=== PATIENT | male | born 1970 | race Caucasian/White ===

== ENCOUNTER 2020-06-15 09:26 | Outpatient (CLI) | payer OTHER, SELFPAY ==
--- NOTE | 2020-06-15 10:02 | EST_ITS ---
Patient Info Name: Alfredito Varghese Age: 49 years : 1970 Gender: Male Ht: 71 in Wt: 210 lbs BSA: 2.21 m2 Exam Date: 06/15/2020 10:14 AM Exam Location: [facility] Stress Patient Status: Outpatient Admit Date: 06/15/2020 Staff Ordering Physician: Joaquin Abebe DO Attending Provider: Joaquin Abebe DO Exercise Technologist: Sally Lawrence CT Exam Type: CA stress test treadmill Study Info A treadmill exercise stress test was performed. Summary 1. 1. Negative Portillo exercise stress test for ischemic ST changes by ECG criteria. 2. 2. Good functional capacity, achieving 12 METs of workload. 3. 3. Appropriate HR response to exercise. 4. 4. Appropriate HR recovery at 1 minute post exercise. 5. 5. No imaging with stress testing. 6. 6. Patient informed of the above results. Protocol: Portillo Stress ECG Details Stage: REST Duration (min): 0 min : 59 sec Speed (mph): 0.0 Grade (%): 0 HR (bpm): 72 SBP (mmHg): 111 DBP (mmHg): 75 METS: --- Stage: REST Duration (min): 15 min : 7 sec Speed (mph): 0.0 Grade (%): 0 HR (bpm): 79 SBP (mmHg): 111 DBP (mmHg): 75 METS: --- Stage: STAGE 1 Duration (min): 1 min : 0 sec Speed (mph): 1.7 Grade (%): 10 HR (bpm): 83 SBP (mmHg): 111 DBP (mmHg): 75 METS: --- Stage: STAGE 1 Duration (min): 2 min : 0 sec Speed (mph): 1.7 Grade (%): 10 HR (bpm): 90 SBP (mmHg): 111 DBP (mmHg): 75 METS: --- Stage: STAGE 1 Duration (min): 3 min : 0 sec Speed (mph): 1.7 Grade (%): 10 HR (bpm): 94 SBP (mmHg): 130 DBP (mmHg): 67 METS: --- Stage: STAGE 2 Duration (min): 1 min : 0 sec Speed (mph): 2.5 Grade (%): 12 HR (bpm): 98 SBP (mmHg): 130 DBP (mmHg): 67 METS: --- Stage: STAGE 2 Duration (min): 2 min : 0 sec Speed (mph): 2.5 Grade (%): 12 HR (bpm): 104 SBP (mmHg): 148 DBP (mmHg): 66 METS: --- Stage: STAGE 2 Duration (min): 3 min : 0 sec Speed (mph): 2.5 Grade (%): 12 HR (bpm): 101 SBP (mmHg): 148 DBP (mmHg): 66 METS: --- Stage: STAGE 3 Duration (min): 1 min : 0 sec Speed (mph): 3.4 Grade (%): 14 HR (bpm): 113 SBP (mmHg): 150 DBP (mmHg): 64 METS: --- Stage: STAGE 3 Duration (min): 2 min : 0 sec Speed (mph): 3.4 Grade (%): 14 HR (bpm): 117 SBP (mmHg): 150 DBP (mmHg): 64 METS: --- Stage: STAGE 3 Duration (min): 3 min : 0 sec Speed (mph): 3.4 Grade (%): 14 HR (bpm): 122 SBP (mmHg): 171 DBP (mmHg): 69 METS: --- Stage: STAGE 4 Duration (min): 1 min : 0 sec Speed (mph): 4.2 Grade (%): 16 HR (bpm): 140 SBP (mmHg): 171 DBP (mmHg): 69 METS: --- Stage: STAGE 4 Duration (min): 2 min : 0 sec Speed (mph): 4.2 Grade (%): 16 HR (bpm): 157 SBP (mmHg): 208 DBP (mmHg): 94
== END 2020-06-15 09:27 | disposition home or self-care (01) ==
PROVIDERS: PCP Internal Medicine; Visit Provider Internal Medicine
DX: R07.9 Chest pain, unspecified (principal)
CPT/HCPCS: 93017

== ENCOUNTER 2022-11-08 09:15 | Outpatient (CLI) | payer BC, SELFPAY ==
--- NOTE | 2022-11-14 13:41 | WPDHOMESLEEP ---
Sleep Study - Home Unattended Date of Study: 11/08/22 Ordering Provider: Joaquin Abebe DO Interpreting Provider: Alyssa Schaeffer MD Home Sleep Study Type: Watch PAT Height: 1.8 m Weight: 95.254 kg Body Mass Index: 29.2 Neck Circumference (inches): 16.5 Powderly: 3 Reason for Sleep Study Loud snoring, excessive daytime sleepiness Sleep History Alfredito Varghese is a 52-year-old [employer] with complaints of loud snoring and frequent breathing problems at night. He does not awaken from sleep feeling short of breath. He rarely awakens at night with heartburn, belching or coughing. He frequently snores and is always loud enough that it bothers others. He frequently has difficulty sleeping if he has a cold. He rarely sweats excessively at night. He does not notice his heart pounding or beating irregularly night. He occasionally falls asleep during the day. He never falls asleep involuntarily. He occasionally has fallen asleep while driving. He does not have loss of muscle tone with strong emotion. He rarely has daytime difficulties due to excessive sleepiness. He does not feel paralyzed on waking or falling asleep. He occasionally has vivid dreamlike scenes on waking or falling asleep. He does not feel afraid to go to sleep. He rarely has nightmares. He occasionally remembers his dreams. He occasionally has racing thoughts. He does not feel sad or depressed. He rarely has anxiety. He rarely has muscular tension. He rarely notices parts of his body jerking. He occasionally kicks at night. He does not have crawling or aching feelings in his legs. He rarely has leg pain at night. He rarely has morning jaw pain. He frequently grinds his teeth during sleep. He rarely is bothered by pain during the day. He occasionally is awakened by pain at night. He occasionally wakes up feeling stiff in the morning. He rarely wakes up with sore or achy muscles. He occasionally wakes up with pain in the neck and spine. Normal bedtime is between 9:30 p.m. and 10:00 p.m.. He falls asleep within 15-20 minutes. He typically wakes between 2 and 3 times at night, returns to sleep within 5 minutes. On his days off, he awakens between 6:00 a.m. and 7:00 a.m.. On work days, he wakes between 4:00 a.m. and 4:15 a.m.. Weekend schedule is similar. He estimates getting between 6 and 6.5 hours of sleep at night. He does not take naps. Habits: Quit tobacco 25 years ago. Caffeine 4 cups of coffee per day. Alcohol 2 servings per day. Recreational substances: None. [facility] Past Medical History Medical History Long-term current use of testosterone cypionate Male hypogonadism Other hyperlipidemia Surgical History Surgical History History of medial meniscus repair of left knee Family History Family History Father Hypertension Social History Social History Smoking status: Former smoker Smoking end date: 02/11/98 Alcohol intake: current Lack of Transportation: No Lack of Food: Never True Current Housing: I Have Housing Concerned About Future Housing: No Difficulty Paying Gas/Electric Bills: No Difficulty Paying for Meds: No Currently Unemployed: No Education: Associate Degree Difficulty w/ Childcare or Family Care: No Medications Home Medications Medication Instructions Recorded Confirmed Type needle (disp) 18 G 18 gauge x 1 #100 ea 07/17/22 10/02/22 Rx 1/2 (BD Regular Bevel Bethel) syringe with needle 3 mL 25 x 1 #100 ea 07/17/22 10/02/22 Rx 1/2 (BD Luer-Osmani Syringe) testosterone cypionate 200 mg/mL 150 mg (0.75 mL) IM WEEKLY #1 mL 07/24/22 10/02/22 Rx intramuscular oil tadalafil 20 mg tablet 10 - 20 mg PO Q36H PRN sexual 10/02/22 10/02/22 Rx activity #30 tabs
[2022-11-14 13:52] VITALS: BMI 29.2
== END 2022-11-13 09:12 | disposition home or self-care (01) ==
LOC: ANHCSM 09:18
PROVIDERS: PCP Internal Medicine; Visit Provider Internal Medicine
DX: G47.33 Obstructive sleep apnea (adult) (pediatric) (principal); E78.49 Other hyperlipidemia; Z87.891 Personal history of nicotine dependence
CPT/HCPCS: 95800

== ENCOUNTER 2023-09-23 08:02 | Outpatient (CLI) | payer BC, SELFPAY ==
--- NOTE | ~2023-09-23 | XR_ITS ---
XR foot LT min 3V Ordering provider: Joaquin Abebe DO History: . No injury pain across plantar surface of metatarsals . Comparison: None. FINDINGS: BONES: No acute fracture or dislocation. Early calcaneal spur. JOINT SPACES: Normal. No tarsal coalition. SOFT TISSUES: Normal. IMPRESSION: No acute osseous abnormality left foot. Reviewed, dictated and finalized at location A.
== END 2023-09-23 08:03 ==
PROVIDERS: PCP Internal Medicine; Visit Provider Internal Medicine
DX: M79.672 Pain in left foot (principal)
CPT/HCPCS: 73630

== ENCOUNTER 2024-06-15 14:10 | Outpatient (NON) | payer OTHER, SELFPAY ==
--- OUTSIDE RECORDS SUMMARY | 2024-06-15 14:48 | XMS_ITS | Clinical Summary ---
Author Organization [facility] Address [address] [place] [id number] Care Team Providers Care Machine Cloth Measurer Name Role Phone Joaquin Abbee DO Primary Care Provider [phone]- [phone] Allergies No known active allergies Medications fluticasone (FLONASE) 50 mcg/actuation nasal spray inhale 1 spray by intranasal route 2 times every day in each nostril as needed 1 spray 0 6 Active testosterone cypionate (DEPO-TESTOTERO NE) 200 mg/mL injection 4 Active Active Problems No known active problems Family History Medical History Relation Name Comments Ulcerative colitis Brother Heart attack Father Diabetes Other Family history of Diabetes mellitus; Relation Name Status Comments Brother Father Other Social History Tobacco Use Types Packs/Day Years Used Date Smoking Tobacco: Former Cigarettes Alcohol Use Standard Drinks/Week Comments Yes 0 (1 standard drink = 0.6 oz pur e alcohol) AUDIT-C Answer Date Recorded Q1: How often do you have a drink containing alc ohol? Monthly or less 07/15/2023 Q2: How many drinks containi ng alcohol do you have on a typical day when you are drinking? 1 or 2 07/15/2023 Q3: How often do you have si x or more drinks on one occasion? 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 Gender Identity Not on file Sexual Orientation Not on file Obstetrics History Last Filed Vital Signs Vital Sign Reading Time Taken Comments Blood Pressure 124/64 03/31/2015 2:19 PM SAVINGS COUNSELOR Pulse 66 03/31/2015 2:19 PM SAVINGS COUNSELOR Temperature - - Respiratory Rate - - Oxygen Saturation - - Inhaled Oxygen Concentration - - Weight 93.9 kg (207 lb) 07/15/2023 8:07 AM CDT Height 180.3 cm (5' 11 ) 07/15/2023 8:07 AM CDT Body Mass Index 28.87 07/15/2023 8:07 AM CDT Plan of Treatment Health Maintenance Due Date Last Done Comments Colon Cancer Screening-Colonoscopy 1970 Depression Screening 1970 Hepatitis C Screening 1970 Prostate Cancer Screening-PSA 1970 DTaP/Tdap/Td Vaccine (1 - Tdap) 1981 Hepatitis B Screening 1988 Regular Well Visit/Exam 18-64 1988 Zoster Vaccine (1 of 2) 2020 Covid-19 Vaccine (3 - 2023-2 5 season) 2023 04/12/2020, 03/15/2020 Influenza Vaccine (Season Ended) 2024 Pneumococcal vaccine <65 Aged Out No longer eligible based on patient's age to complete this topic Insurance [facility] FEDERAL Care Teams Machine Cloth Measurer Relationship Specialty Start Date End Date Joaquin Abebe DO PCP - General Internal Medicine 06/22/21
--- OUTSIDE RECORDS SUMMARY | 2024-06-15 14:48 | XMS_ITS | Referral Summary ---
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 Gender Identity Not on file Sexual Orientation Not on file Last Filed Vital Signs Vital Sign Reading Time Taken Comments Blood Pressure 124/64 03/31/2015 2:19 PM CRIME SCENE EVIDENCE TECHNICIAN Pulse 66 03/31/2015 2:19 PM CRIME SCENE EVIDENCE TECHNICIAN Temperature - - Respiratory Rate - - Oxygen Saturation - - Inhaled Oxygen Concentration - - Weight 93.9 kg (207 lb) 07/15/2023 8:07 AM CDT Height 180.3 cm (5' 11 ) 07/15/2023 8:07 AM CDT Body Mass Index 28.87 07/15/2023 8:07 AM CDT Plan of Treatment Not on file Insurance [facility] FEDERAL Care Teams Barrel Cooper Relationship Specialty Start Date End Date Joaquin Abebe DO PCP - General Internal Medicine 06/22/21
--- OUTSIDE RECORDS SUMMARY | 2024-06-15 14:48 | XMS_ITS | Clinical Summary ---
Author Organization [facility] Address [address] [place] [address] Care Team Providers Care Elevated Motorman Name Role Phone Joaquin Abebe DO Primary Care Provider [phone] Source Comments [facility],non-owned Affiliates and Associated Physician Practices is amultiple site organization consisting of ambulatory clinics and hospital sitesin [place], [place], [place] and [place]. This disclosure is being madepursuant to the Care Everywhere program and may not contain all information available regarding this patient. Last updated 17.[facility] Allergies No known active allergies Medications * Be aware that medications may not be up to date on this document. Alwaysverify current medications with the patient. No known medications Social History Tobacco Use Types Packs/Day Years Used Date Smoking Tobacco: Former Cigarettes Q uit: 11/12/1996 Smokeless Tobacco: Never Sex and Gender Information Value Date Recorded Sex Assigned at Not on file Legal Sex Male 5:24 PM CDT Gender Identity Not on file Sexual Orientation Not on file Last Filed Vital Signs Vital Sign Reading Time Taken Comments Blood Pressure 136/84 11/12/2016 5:32 PM CDT Pulse 74 11/12/2016 5:32 PM CDT Temperature 37.1 C (98.7 F) 11/12/2016 5:32 PM CDT Respiratory Rate 16 11/12/2016 5:32 PM CDT Oxygen Saturation 97% 11/12/2016 5:32 PM CDT Inhaled Oxygen Concentration - - Weight 95.3 kg (210 lb) 11/12/2016 5:32 PM CDT Height 182.9 cm (6') 11/12/2016 5:32 PM CDT Body Mass Index 28.48 11/12/2016 5:32 PM CDT Plan of Treatment Health Maintenance Due Date Last Done Comments COLOGUARD (AGES 45-75) - COL ON CA SCREENING 1970 COLON MONITORING 1970 COLONOSCOPY - COLON CA SCREENING 1970 CT COLONOGRAPHY - COLON CA SCREENING 1970 Colorectal Cancer Screening 1970 FIT - COLON CA SCREENING 1970 FLEX SIG - COLON CA SCREENING 1970 LIPID TESTING 1970 HIV SCREENING 1985 HEPATITIS C SCREENING 07/11/1988 DTAP/TDAP/TD VACCINES (1 - Tdap) 1989 HEPATITIS B VACCINE (1 of 3 - 19+ 3-dose series) 1989 SCREENING FOR DIABETES 11/12/2016 PNEUMOCOCCAL VACCINE 50+ (1 of 1 - PCV) 2020 ZOSTER VACCINE (1 of 2) 2020 COVID-19 VACCINE (1 - 2023-2 5 season) 2023 DEPRESSION SCREENING 02/12/2024 INFLUENZA VACCINE (Season Ended) 2024 HIB VACCINE Aged Out No longer eligi ble based on patient's age to complete this topic HPV VACCINE Aged Out No longer eligi ble based on patient's age to complete this topic MENINGOCOCCAL (Group B) VACC INE SHARED DECISION-MAKING Aged Out No longer eligibl e based on patient's age to complete this topic MENINGOCOCCAL GROUPS A/C/Y/W VACCINE Aged Out No longer eligible b ased on patient's age to complete this topic [place] [address] [place] [address] Care Teams Elevated Motorman Relationship Specialty Start Date End Date Joaquin Abebe DO PCP - General Internal Medicine 11/12/16
--- OUTSIDE RECORDS SUMMARY | 2024-06-15 14:48 | XMS_ITS | Clinical Summary ---
Author Organization [facility] [id number] [place] [address] Address [address] [place] [address] Care Team Providers Care Camouflage Specialist Name Role Phone Amanuel Jones Primary Care Provider Unavailabl e Allergies No known active allergies Medications testosterone cypionate (DEPO-TESTOSTERONE ) 200 mg/mL Oil 11/25/2023 Act madhu Encounters Date Type Department Care Team Description 04/29/2024 External Device Data [facility] ABSTRACTION Provider, Abstract 04/21/2024 External Device Data [facility] ABSTRACTION Provider, Abstract 04/21/2024 External Device Data [facility] ABSTRACTION Provider, Abstract 04/18/2024 External Device Data [facility] ABSTRACTION Provider, Abstract 04/17/2024 External Device Data ST[facility] ABSTRACTION Provider, Abstract 04/07/2024 External Device Data ST[facility] ABSTRACTION Provider, Abstract 03/24/2024 External Device Data STL ABSTRACTION Provider, Abstract from Last 3 Months Social History Tobacco Use Types Packs/Day Years Used Date Smoking Tobacco: Former Cigarettes Q uit: 1989 Smokeless Tobacco: Former Chew Tobacco Cessation:Counseling Given: Not Answered Alcohol Use Standard Drinks/Week Comments Yes 6 (1 standard drink = 0.6 oz pur e alcohol) Feeling Safe Answer Date Recorded Are you in a relationship wi th someone who hurts you emotionally and/or physically? No 12/27/2023 Sex and Gender Information Value Date Recorded Sex Assigned at Not on file Legal Sex Male 4:11 AM HAND CANDLE DIPPER Gender Identity Not on file Sexual Orientation Not on file Last Filed Vital Signs Vital Sign Reading Time Taken Comments Blood Pressure 118/93 12/27/2023 2:15 PM HAND CANDLE DIPPER Pulse 61 12/27/2023 2:15 PM HAND CANDLE DIPPER Temperature 36.4 C (97.5 F) 12/27/2023 1:55 PM HAND CANDLE DIPPER Respiratory Rate 20 12/27/2023 2:15 PM HAND CANDLE DIPPER Oxygen Saturation 100% 12/27/2023 2:15 PM HAND CANDLE DIPPER Inhaled Oxygen Concentration - - Weight 95.3 kg (210 lb) 12/27/2023 12:50 PM HAND CANDLE DIPPER Height 160 cm (5' 3 ) 12/27/2023 12:50 PM HAND CANDLE DIPPER Body Mass Index 37.2 12/27/2023 12:50 PM HAND CANDLE DIPPER Plan of Treatment Health Maintenance Due Date Last Done Comments Pre-Diabetes and Diabetes Screening 1970 DTAP/TDAP/TD VACCINES (1 - Tdap) 1989 HEPATITIS B VACCINES (1 of 3 - 19+ 3-dose series) 1989 FIT-DNA Q 3 years 07/17/2015 FIT/FOBT Q 1 year 07/17/2015 Flex Sig/CT Colonography Q 5 years 07/17/2015 ZOSTER VACCINE (1 of 2) 2020 INFLUENZA VACCINE (#1) 2023 COLORECTAL SCREENING 12/26/2033 12/27/2023, 12/27/19 24 Colorectal Cancer Screening 12/26/2033 Procedures Procedure Name Priority Date/Time Associated Diagnosis Comments COLONOSCOPY REPORT 12/27/2023 1: 56 PM HAND CANDLE DIPPER from Last 3 Months or Most Recently Relevant to Health Maintenance Results * COLONOSCOPY REPORT (12/27/2023 1:56 PM HAND CANDLE DIPPER) Narrative Procedure Note Tiana Gonzalez MD - 12/27/2023 1:56 PM CST [facility] Endoscopy Patient Name: Alfredito Varghese Procedure Date: 12/27/2023 Date of : 1970 Attending MD: Tiana Gonzalez MD, Procedure: Colonoscopy Indications: Screening for colorectal malignant neoplasm Patient Profile: Refer to note in patient chart for documentation of history and physical. Providers: Tiana Gonzalez MD Referring MD: Joaquin Abebe Medicines: Monitored Anesthesia Care Complications: No immediate complications. Procedure: Pre-Anesthesia Assessment: - Prior to the procedure, a History and Physical was performed, and patient medications, allergies and sensitivities were reviewed. The patient's tolerance of previous anesthesia was reviewed. - The risks and benefits of the procedure and the sedation options and risks were discussed with the patient. All questions were answered and informed consent was obtained. - ASA and MP per anesthesia records. See the other procedure note for documentation of the pre-procedure assessment Informed consent was obtained for the procedure, including moderate sedation after risks were discussed. Based on the pre-procedure assessment, including review of the patient's medical history, medications, allergies, and review of systems, the patient was deemed to be an appropriate candidate for sedation. A timeout was performed. Continuous ECG monitoring, pulse oximetry, blood pressure monitoring, and direct observation were performed. The Colonoscope was introduced through the anus and advanced to the cecum, identified by appendiceal orifice and ileocecal valve. The colonoscopy was performed without difficulty. The patient tolerated the procedure well. The quality of the bowel preparation was evaluated using the BBPS (Clemons Bowel Preparation Scale) with scores of: Right Colon = 3, Transverse Colon = 3 and Left Colon = 3 (entire mucosa seen well with no residual staining, small fragments of stool or opaque liquid). The total BBPS score equals 9. Findings: The perianal and digital rectal examinations were normal. Many small-mouthed diverticula were found in the sigmoid colon. There was no evidence of diverticular bleeding. Non-bleeding external and internal hemorrhoids were found during retroflexion. The hemorrhoids were small. Impression: - Diverticulosis in the sigmoid colon. There was no evidence of diverticular bleeding. - Non-bleeding external and internal hemorrhoids. - No specimens collected. Recommendation: - Repeat colonoscopy in 10 years for screening purposes. - High fiber diet. - Return to primary care physician as previously scheduled. - The findings and recommendations were discussed with the patient. - Discharge patient to home (with escort). Procedure Code(s): --- Professional --- 15542, Colonoscopy, flexible; diagnostic, including collection of specimen(s) by brushing or washing, when performed (separate procedure) CPT copyright 2020 [employer]. All rights reserved. The codes documented in this report are preliminary and upon computer language coder review may be revised to meet current compliance requirements. Attending Participation: I personally performed the entire procedure. Tiana Gonzalez MD 12/27/2023 1:56:04 PM This report has been signed electronically. Number of Addenda: [id number] [address], [place] [address] Tiana Gonzalez MD GI PROCEDURE ORDERABLES Final Result from Last 3 Months or Most Recently Relevant to Health Maintenance Insurance [facility] FEDERAL Care Teams Camouflage Specialist Relationship Specialty Start Date End Date Amanuel Jones PCP - General 01/16/02
--- OUTSIDE RECORDS SUMMARY | 2024-06-15 14:48 | XMS_ITS | Encounter Summary ---
Author Organization [facility] Address 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
--- OUTSIDE RECORDS SUMMARY | 2024-06-15 14:48 | XMS_ITS | Encounter Summary ---
Author Organization [facility] Address 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
[2024-06-15 20:01] LABS: Add Urine Microscopic? NO; Appearance Urine Clear (Clear); Bilirubin Urine Negative (Negative); Blood Urine Negative (Negative); Color Urine Yellow (Yellow); Glucose Urine UA Negative (Negative); Ketones Urine Negative (Negative); Leukocyte Esterase Ur Negative LEU/UL (Negative); Nitrate Urine Negative (Negative); Protein Urine Negative (Negative); Specific Grav Ur 1.013 (1.001-1.035); Urobilinogen Urine 0.2 mg/dL (<2.0); pH Urine 6.5 (5.0-9.0)
== END 2024-06-15 14:11 | disposition home or self-care (01) ==
PROVIDERS: PCP Internal Medicine; Visit Provider Internal Medicine
DX: R10.9 Unspecified abdominal pain (principal); R30.0 Dysuria
CPT/HCPCS: 81003

== ENCOUNTER 2024-06-15 14:25 | Outpatient (CLI) | payer OTHER, SELFPAY ==
--- NOTE | ~2024-06-15 | CT_ITS ---
EXAMINATION: CT abdomen pelvis w con DATE: 06/15/2024 14:54 INDICATION: Pelvic and perineal pain TECHNIQUE: Computed tomography (CT) of the abdomen and pelvis was performed with 100 mL Omnipaque-350 intravenous contrast. Automated exposure control and iterative reconstruction technique were employe d. The dose-length product was 712.18 mGy-cm. COMPARISON: None FINDINGS: Mild dependent atelectasis in bilateral lower lobes. Heart size is normal. No pericardial or pleural effusion. Liver, gallbladder, pancreas, bilateral adrenal glands and kidneys are normal. Splenic calc ific lesions consistent with old granulomatous disease. There is mild scattered colonic diverticulosi s with inflammatory stranding surrounding a diverticulum at the proximal sigmoid colon consistent wit h diverticulitis. Small bowel and appendix are normal. Bladder is normal. Small fat-containing right inguinal hernia. No abscess or free intraperitoneal gas or fluid. No pathologically enlarged abdomina l or pelvic lymphadenopathy. Mild to moderate lumbar spondylosis. IMPRESSION: 1. Radiographic uncomplicated sigmoid diverticulitis. 2. Small fat-containing right inguinal hernia. Reviewed, dictated and finalized at location A.
== END 2024-06-15 14:26 | disposition home or self-care (01) ==
PROVIDERS: PCP Internal Medicine; Visit Provider Internal Medicine
DX: K40.90 Unilateral inguinal hernia, without obstruction or gangrene, not specified as recurrent (principal); K57.32 Diverticulitis of large intestine without perforation or abscess without bleeding
CPT/HCPCS: 74177; Q9967

== ENCOUNTER 2024-12-22 08:29 | Outpatient (CLI) | payer OTHER, SELFPAY ==
--- OUTSIDE RECORDS SUMMARY | 2024-12-22 08:40 | XMS_ITS | Encounter Summary ---
Author Organization [employer] Address 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
--- OUTSIDE RECORDS SUMMARY | 2024-12-22 08:40 | XMS_ITS | Clinical Summary ---
Author Organization [facility] [id number] [facility] Address [address] [place] [address] Care Team Providers Care Medical Billing Coordinator Name Role Phone Amanuel Jones Primary Care Provider Unavailabl e Allergies No known active allergies Medications testosterone cypionate (DEPO-TESTOSTERONE ) 200 mg/mL Oil 11/25/2023 Act madhu Encounters Date Type Department Care Team Description 12/15/2024 External Device Data [facility] ABSTRACTION Provider, Abstract 12/09/2024 External Device Data [facility] ABSTRACTION Provider, Abstract 12/08/2024 External Device Data [facility] ABSTRACTION Provider, Abstract [...] on file 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 Gender Identity Not on file Sexual Orientation Not on file Last Filed Vital Signs Vital Sign Reading Time Taken Comments Blood Pressure 118/93 12/27/2023 2:15 PM DESIGN TECHNICIAN Pulse 61 12/27/2023 2:15 PM DESIGN TECHNICIAN Temperature 36.4 C (97.5 F) 12/27/2023 1:55 PM DESIGN TECHNICIAN Respiratory Rate 20 12/27/2023 2:15 PM DESIGN TECHNICIAN Oxygen Saturation 100% 12/27/2023 2:15 PM DESIGN TECHNICIAN Inhaled Oxygen Concentration - - Weight 95.3 kg (210 lb) 12/27/2023 12:50 PM DESIGN TECHNICIAN Height 160 cm (5' 3) 12/27/2023 12:50 PM DESIGN TECHNICIAN Body Mass Index 37.2 12/27/2023 12:50 PM DESIGN TECHNICIAN Plan of Treatment Health Maintenance Due Date Last Done Comments Pre-Diabetes and Diabetes Screening 1970 DTAP/TDAP/TD VACCINES (1 - Tdap) 1989 HEPATITIS B VACCINES (1 of 3 - 19+ 3-dose series) 1989 FIT-DNA Q 3 years 07/17/2015 FIT/FOBT Q 1 year 07/17/2015 Flex Sig/CT Colonography Q 5 years 07/17/2015 ZOSTER VACCINE (1 of 2) 2020 INFLUENZA VACCINE (#1) 2024 COLORECTAL SCREENING 12/26/2033 12/27/2023, 12/27/19 24 Colorectal Cancer Screening 12/26/2033 Procedures Procedure Name Priority Date/Time Associated Diagnosis Comments COLONOSCOPY REPORT 12/27/2023 1: 56 PM DESIGN TECHNICIAN from Last 3 Months or Most Recently Relevant to Health Maintenance Results * COLONOSCOPY REPORT (12/27/2023 1:56 PM DESIGN TECHNICIAN) Narrative Procedure Note Tiana Gonzalez MD - 12/27/2023 1:56 PM CST [facility] Endoscopy Patient Name: Alfredito Varghese Procedure [...] bowel preparation was evaluated using the BBPS ([place] Bowel Preparation Scale) with scores of: Right [...] (with escort). Procedure Code(s): --- Professional --- 37270, Colonoscopy, flexible; diagnostic, including collection of specimen(s) by brushing or washing, when performed (separate procedure) CPT copyright 2020 [employer]. All rights reserved. The codes documented in this report are preliminary and upon director call review may be revised to meet current compliance requirements. Attending Participation: I personally performed the entire procedure. Tiana Gonzalez MD 12/27/2023 1:56:04 PM This report has been signed electronically. Number of Addenda: [id number], [place] [address] us Tiana Gonzalez MD GI PROCEDURE ORDERABLES Final Result from Last 3 Months or Most Recently Relevant to Health Maintenance Insurance [facility] [employer] Care Teams Medical Billing Coordinator Relationship Specialty Start Date End Date Amanuel Jones PCP - General 01/16/02
--- OUTSIDE RECORDS SUMMARY | 2024-12-22 08:40 | XMS_ITS | Clinical Summary ---
Author Organization [facility] Address [address] [place] [address] Care Team Providers Care Campus Recruiter Name Role Phone Joaquin Abebe DO Primary Care Provider [phone]- [phone] Allergies No known active allergies Medications fluticasone [...] more drinks on one occasion? Never 07/15/2023 Sex and Gender Information Value Date Recorded Sex Assigned at Not on file Legal Sex Male 3:59 AM CAMPAIGN MANAGEMENT SPECIALIST Gender Identity Not on file Sexual Orientation Not on file Last Filed Vital Signs Vital Sign Reading Time Taken Comments Blood Pressure 124/64 03/31/2015 2:19 PM CAMPAIGN MANAGEMENT SPECIALIST Pulse 66 03/31/2015 2:19 PM CAMPAIGN MANAGEMENT SPECIALIST Temperature - - Respiratory Rate - - Oxygen Saturation - - Inhaled Oxygen Concentration - - Weight 93.9 kg (207 lb 0.2 oz) 09/03/2024 3:18 P M CDT Height 180.3 cm (5' 10.98) 09/03/2024 3:18 PM C DT Body Mass Index 28.89 09/03/2024 3:18 PM CDT Plan of Treatment Health Maintenance Due Date Last Done Comments Colon Cancer Screening-Colonoscopy 1970 Depression Screening 1970 Hepatitis C Screening 1970 Prostate Cancer Screening-PSA 1970 DTaP/Tdap/Td Vaccine (1 - Tdap) 1981 Hepatitis B Screening 1988 Regular Well Visit/Exam 18-64 1988 Zoster Vaccine (1 of 2) 2020 Covid-19 Vaccine (3 - 2024-2 6 season) 2024 04/12/2020, 03/15/2020 Influenza Vaccine (#1) 2024 Pneumococcal vaccine <65 Aged Out No longer eligible based on patient's age to complete this topic [facility] Care Teams Campus Recruiter Relationship Specialty Start Date End Date Joaquin Abebe DO PCP - General Internal Medicine 06/22/21
--- OUTSIDE RECORDS SUMMARY | 2024-12-22 08:40 | XMS_ITS | Clinical Summary ---
Author Organization [facility] Address [address] [place] [address] Care Team Providers Care Automobile Body Repair Supervisor Name Role Phone Joaquin Abebe DO Primary Care Provider [phone] Source Comments [facility],non-owned Affiliates and Associated Physician Practices is amultiple site organization consisting of ambulatory clinics and hospital sitesin [place], [place], [place] and [place]. This disclosure is being madepursuant to the Care Everywhere program and may not contain all information available regarding this patient. Last updated 17.[facility] Allergies No known active allergies Medications * [...] 2020 ZOSTER VACCINE (1 of 2) 2020 DEPRESSION SCREENING 02/12/2024 COVID-19 VACCINE (1 - 2023-2 5 season) 2024 INFLUENZA VACCINE (#1) 2024 HIB VACCINE Aged Out No longer [...] patient's age to complete this topic [place] [address] [place] [address] Care Teams Automobile Body Repair Supervisor Relationship Specialty Start Date End Date Joaquin Abebe DO PCP - General Internal Medicine 11/12/16
--- OUTSIDE RECORDS SUMMARY | 2024-12-22 08:40 | XMS_ITS | Encounter Summary ---
Author Organization [employer] Address [address] [place] [address] Care Team Providers Care It Application Architect Name Role Phone Amanuel Jones Primary Care Provider Unavailabl e Encounter Details Date Type Department Care Team (Latest Contact Info) Description 01/16/2002 Outpatient Historical [facility] Joaquin Rodriguez MD [address] [place] [address] UNILAT INGUINAL HERNIA (Primary Dx) Social History Tobacco Use Types Packs/Day Years Used Date Smoking Tobacco: Never Assessed Sex and Gender Information Value Date Recorded Sex Assigned at Not on file 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
== END 2024-12-22 08:30 | disposition home or self-care (01) ==
LOC: ANHGOSHLAB 08:30
PROVIDERS: PCP Internal Medicine; Visit Provider Internal Medicine
DX: R97.20 Elevated prostate specific antigen [PSA] (principal)
CPT/HCPCS: 36415